=== PATIENT | female | born 1945 | race Caucasian/White ===

== ENCOUNTER 2017-08-06 10:16 | Inpatient (IN) | payer MEDICARE ==
[~2017-08-06] VITALS: Ht 154.9 cm; Wt 54.1 kg
[2017-08-06 10:56] LABS: Basophils # (auto) 0.1 uL; Basophils % (auto) 0.7 % (0.0-2.0); Eosinophils # (auto) 0.1 uL; Eosinophils % (auto) 0.9 % (0.0-7.0); Hematocrit 47.5 % (36.0-46.0); Hemoglobin 16.3 g/dL (12.2-16.2); Lymphocytes # (auto) 2.4 uL; Lymphocytes % (auto) 30.3 % (10.0-50.0); Mean Corpuscular Hemoglobin 31.4 pg (28.0-32.0); Mean Corpuscular Hgb Conc. 34.3 g/dL (32.0-36.0); Mean Corpuscular Volume 91.6 fL (80.0-100.0); Mean Platelet Volume 6.9 fL (6.9-10.8); Monocytes # (auto) 0.6 uL; Monocytes % (auto) 8.2 % (0.0-12.0); Neutrophils # (auto) 4.7 uL; Neutrophils % (auto) 59.9 % (37.0-80.0); Nucleated Red Blood Cells % 0.1 %; Platelet Count (auto) 308 10^3/uL (140-450); Red Cell Distribution Width 13.7 % (11.8-14.3); White Blood Cell 7.8 10^3/uL (4.4-10.8)
[2017-08-06 11:19] LABS: Albumin 3.6 g/dL (3.4-5.0); Alkaline Phosphatase 40 U/L (45-117); Anion Gap 8 (5-15); Aspartate Aminotransferase 14 U/L (15-37); BUN/Creatinine Ratio 16.9; Bilirubin, Total 0.6 mg/dL (0.2-1.0); Blood Urea Nitrogen 11 mg/dL (7-18); Calcium 8.6 mg/dL (8.5-10.1); Carbon Dioxide 25 mmol/L (21-32); Chloride 106 mmol/L (98-107); GFR African American 115 mL/min; GFR Non-African American 95 mL/min; Glucose 123 mg/dL (74-106); Magnesium 2.4 mg/dL (1.6-2.6); Potassium 3.9 mmol/L (3.5-5.1); Sodium 139 mmol/L (136-145); Total Protein 6.8 g/dL (6.4-8.2)
[2017-08-06 14:35] LABS: B-Type Natriuretic Peptide 45.2 pg/mL (0-100); Temperature: 21.9 C (20.0-25.0)
[2017-08-06] MEDS ORDERED: SODIUM CHLORIDE 0.9% 1,000 ML IVB ONE (15:30)
[2017-08-06 16:05] LABS: Urine Blood Negative /uL (Negative); Urine Color Brown (Yellow); Urine Glucose Normal (Normal); Urine Ketone Negative (Negative); Urine Mucus FEW (None Seen); Urine Nitrite POSITIVE (Negative); Urine RBC 1 /hpf (0 - 4); Urine Squamous Epithelial Cell FEW /hpf (<5)
[2017-08-06 16:24] LABS: Urine Bilirubin Negative (Negative)
[2017-08-06 16:52] LABS: Partial Thromboplastin Time 26.9 sec (22.64-33.71); Prothrombin Time 10.9 sec (9.37-12.3)
[2017-08-06] MEDS ORDERED: cefTRIAXone 1GM/50ML D5W 50 ML IV ONE (17:00)
[2017-08-06] MEDS ORDERED: ALBUTEROL SULF 2.5 MG/0.5ML(0.5%) NEB SOLN NEB PRN (19:30)
[2017-08-06] MEDS ORDERED: IPRATROPIUM BROM 0.5 MG/2.5ML INH SOL NEB PRN (19:30)
[2017-08-06] MEDS ORDERED: VERAPAMIL HCL 40 MG TAB PO ONE (22:00)
[2017-08-06 22:02] LABS: Cholesterol 176 mg/dL (< 200); HDL Cholesterol 65 mg/dL (40-59); LDL Cholesterol 102 mg/dL (< 100); Triglycerides 122 mg/dL (< 150)
[2017-08-06] MEDS: ENOXAPARIN SOD 40 MG/0.4 ML SYRINGE SC SCH (22:02)
[2017-08-06] MEDS: LEVOFLOXACIN 750MG 150 ML IV SCH (22:03)
[2017-08-06] MEDS: SODIUM CHLORIDE 0.9% 1,000 ML IV SCH (22:03)
[2017-08-07] VITALS (8 sets, daily range): BP systolic 113–156; BP diastolic 55–78
[2017-08-07] MEDS ORDERED: VERA1TAB9 PO (00:47)
[2017-08-07] MEDS ORDERED: CHOL20007 PO (00:47)
[2017-08-07] MEDS ORDERED: ESOM40CA39 PO (00:47)
[2017-08-07] MEDS: VERAPAMIL HCL 40 MG TAB PO SCH (05:50)
[2017-08-07 07:00] LABS: Basophils # (auto) 0 uL; Basophils % (auto) 0.8 % (0.0-2.0); Eosinophils # (auto) 0.1 uL; Hematocrit 42.1 % (36.0-46.0); Hemoglobin 14.3 g/dL (12.2-16.2); Lymphocytes % (auto) 30.2 % (10.0-50.0); Mean Corpuscular Hemoglobin 31.2 pg (28.0-32.0); Mean Corpuscular Volume 91.8 fL (80.0-100.0); Mean Platelet Volume 6.9 fL (6.9-10.8); Monocytes # (auto) 0.6 uL; Monocytes % (auto) 9.2 % (0.0-12.0); Neutrophils # (auto) 3.9 uL; Neutrophils % (auto) 58.8 % (37.0-80.0); Nucleated Red Blood Cells % 0.1 %; Platelet Count (auto) 251 10^3/uL (140-450); Red Cell Distribution Width 13.7 % (11.8-14.3); White Blood Cell 6.6 10^3/uL (4.4-10.8)
[2017-08-07 07:22] LABS: Albumin 2.9 g/dL (3.4-5.0); BUN/Creatinine Ratio 16.1; Potassium 3.8 mmol/L (3.5-5.1)
[2017-08-07 07:26] LABS: Bilirubin, Total 0.6 mg/dL (0.2-1.0); Total Protein 5.7 g/dL (6.4-8.2)
[2017-08-07] MEDS: PANTOPRAZOLE 40 MG TAB PO SCH (11:18)
[2017-08-07] MEDS: SODIUM CHLORIDE 0.9% 1,000 ML IV SCH (12:10)
[2017-08-07] MEDS ORDERED: KETOROLAC TROMETH 30 MG/ML 1ML VIAL IV PRN (14:00)
[2017-08-07] MEDS ORDERED: ONDANSETRON HCL 4 MG/2 ML VIAL IV PRN (14:00)
[2017-08-07] MEDS: LORazepam 0.5 MG TAB PO PRN ×2 (15:39→23:11)
[2017-08-07] MEDS: ENOXAPARIN SOD 40 MG/0.4 ML SYRINGE SC SCH (18:58)
[2017-08-07] MEDS: TEMAZEPAM 15 MG CAP PO PRN (21:25)
[2017-08-07] MEDS: LEVOFLOXACIN 750MG 150 ML IV SCH (21:25)
[2017-08-08 05:28] VITALS: BP 121/65
[2017-08-08 06:58] LABS: Basophils # (auto) 0 uL; Basophils % (auto) 0.6 % (0.0-2.0); Eosinophils # (auto) 0.1 uL; Eosinophils % (auto) 1.3 % (0.0-7.0); Hematocrit 41.9 % (36.0-46.0); Hemoglobin 14.1 g/dL (12.2-16.2); Lymphocytes # (auto) 2.4 uL; Lymphocytes % (auto) 37.1 % (10.0-50.0); Mean Corpuscular Hemoglobin 31.4 pg (28.0-32.0); Mean Corpuscular Hgb Conc. 33.8 g/dL (32.0-36.0); Mean Corpuscular Volume 93.1 fL (80.0-100.0); Mean Platelet Volume 7.4 fL (6.9-10.8); Monocytes # (auto) 0.6 uL; Monocytes % (auto) 9.6 % (0.0-12.0); Neutrophils # (auto) 3.3 uL; Neutrophils % (auto) 51.4 % (37.0-80.0); Nucleated Red Blood Cells % 0.1 %; Platelet Count (auto) 210 10^3/uL (140-450); Red Cell Distribution Width 13.7 % (11.8-14.3); White Blood Cell 6.4 10^3/uL (4.4-10.8)
[2017-08-08] MEDS: SODIUM CHLORIDE 0.9% 1,000 ML IV SCH (07:07)
[2017-08-08 07:09] LABS: BUN/Creatinine Ratio 19.6; Calcium 7.5 mg/dL (8.5-10.1); Potassium 3.7 mmol/L (3.5-5.1)
[2017-08-08] MEDS: VERAPAMIL HCL 40 MG TAB PO SCH (07:11)
[2017-08-08 07:30] VITALS: BP 102/56
[2017-08-08 09:00] VITALS: BP 142/69
[2017-08-08] MEDS: LORazepam 0.5 MG TAB PO PRN (11:00)
[2017-08-08] MEDS: PANTOPRAZOLE 40 MG TAB PO SCH (12:53)
[2017-08-08 13:00] VITALS: BP 102/56
[2017-08-08] MEDS ORDERED: ALPRAZolam 0.25 MG TAB PO ONE (13:00)
[2017-08-08 17:00] VITALS: BP 112/63
[2017-08-08] MEDS ORDERED: CARI250T PO (17:53)
[2017-08-08 20:00] VITALS: BP 104/55
[2017-08-08] MEDS: ALPRAZolam 0.25 MG TAB PO SCH (21:23)
[2017-08-08] MEDS: LEVOFLOXACIN 750MG 150 ML IV SCH (21:23)
[2017-08-08] MEDS: TEMAZEPAM 15 MG CAP PO PRN (22:22)
[2017-08-09 05:20] VITALS: BP 140/80
[2017-08-09] MEDS: VERAPAMIL HCL 40 MG TAB PO SCH (06:18)
[2017-08-09] MEDS ORDERED: ACETAMINOPHEN 325 MG TAB PO PRN (07:00)
[2017-08-09 07:46] VITALS: BP 143/77
[2017-08-09] MEDS: PANTOPRAZOLE 40 MG TAB PO SCH (08:51)
[2017-08-09] MEDS: ALPRAZolam 0.25 MG TAB PO SCH (08:52)
[2017-08-09] MEDS ORDERED: DOCUSATE SOD 100 MG CAP PO SCH (10:00)
[2017-08-09] MEDS ORDERED: ALPRAZolam 0.25 MG TAB PO ONE (11:15)
[2017-08-09 12:26] VITALS: BP 114/53
== END 2017-08-09 14:00 | DRG 689 ==
LOC: ER 10:16 → TELE 10:17 → TELE-EAST 20:45 → EAST 08-08 14:25
PROVIDERS: ADMIT Nurse Practitioner Acute Care; ATTEND Internal Medicine
DX: N39.0 Urinary tract infection, site not specified (principal); J18.9 Pneumonia, unspecified organism; K31.84 Gastroparesis; I10 Essential (primary) hypertension; K21.9 Gastro-esophageal reflux disease without esophagitis; M81.0 Age-related osteoporosis without current pathological fracture; E78.5 Hyperlipidemia, unspecified; F32.9 Major depressive disorder, single episode, unspecified; F41.9 Anxiety disorder, unspecified; K58.9 Irritable bowel syndrome, unspecified; J06.9 Acute upper respiratory infection, unspecified; Z82.49 Family history of ischemic heart disease and other diseases of the circulatory system
CPT/HCPCS: 36415; 71010; 80048; 80053; 80061; 81001; 83605; 83735; 83880; 84484; 85025; 85379; 85610; 85730; 87040; 87081; 87086; 87088; 87186; 87400; 92610; 93005; 94761; 96361; 96365; J0696; J1885; J1956

== ENCOUNTER 2018-11-12 08:04 | Emergency (ER) | payer MEDICARE, OTHER ==
[~2018-11-12] VITALS: Ht 154.9 cm; Wt 65.3 kg
[~2018-11-12 08:04] MED LIST: CARI250T PO; CHOL20007 PO; ESOM40CA39 PO; VERA1TAB9 PO
[2018-11-12 08:30] VITALS: BP 152/69
[2018-11-12 08:56] LABS: Basophils # (auto) 0.1 uL; Basophils % (auto) 0.8 % (0.0-2.0); Eosinophils # (auto) 0.1 uL; Eosinophils % (auto) 1.3 % (0.0-7.0); Hematocrit 46.9 % (36.0-46.0); Hemoglobin 15.7 g/dL (12.2-16.2); Lymphocytes # (auto) 1.9 uL; Lymphocytes % (auto) 28.4 % (10.0-50.0); Mean Corpuscular Hemoglobin 30.8 pg (28.0-32.0); Mean Corpuscular Hgb Conc. 33.4 g/dL (32.0-36.0); Mean Corpuscular Volume 92.2 fL (80.0-100.0); Monocytes # (auto) 0.6 uL; Monocytes % (auto) 8.5 % (0.0-12.0); Platelet Count (auto) 268 10^3/uL (140-450); Red Blood Cells 5.08 10^6/uL (4.0-5.20); Red Cell Distribution Width 13.5 % (11.8-14.3); White Blood Cell 6.6 10^3/uL (4.4-10.8)
[2018-11-12 09:02] LABS: Alanine Aminotransferase 24 U/L (13-56); Albumin 3.6 g/dL (3.4-5.0); Anion Gap 10 (5-15); Aspartate Aminotransferase 18 U/L (15-37); BUN/Creatinine Ratio 22.7; Blood Urea Nitrogen 22 mg/dL (7-18); Calcium 8.6 mg/dL (8.5-10.1); Carbon Dioxide 24 mmol/L (21-32); Chloride 107 mmol/L (98-107); GFR African American > 60 mL/min; GFR Non-African American 60 mL/min; Glucose 115 mg/dL (74-106); Potassium 3.9 mmol/L (3.5-5.1); Sodium 141 mmol/L (136-145)
[2018-11-12 09:05] LABS: Alkaline Phosphatase 65 U/L (45-117); Bilirubin, Total 0.8 mg/dL (0.2-1.0); Total Protein 6.7 g/dL (6.4-8.2)
[2018-11-12 09:23] LABS: Urine Amorphous Crystal FEW /hpf (None Seen); Urine Bacteria NONE SEEN /hpf (None Seen); Urine Blood Negative /uL (Negative); Urine Mucus FEW (None Seen); Urine Specific Gravity 1.037 (1.001-1.035); Urine WBC 3 /hpf (0 - 5)
[2018-11-12] MEDS ORDERED: FLEET ENEMA(ADULT) 135 ML PR ONE (10:30)
== END 2018-11-12 11:02 | disposition home or self-care (01) ==
LOC: ER 08:04 → EDBD 08:04 → ER 11:02
DX: K59.00 Constipation, unspecified (principal); R30.0 Dysuria; K21.9 Gastro-esophageal reflux disease without esophagitis; I10 Essential (primary) hypertension; Z88.0 Allergy status to penicillin; Z88.6 Allergy status to analgesic agent; Z79.899 Other long term (current) drug therapy
CPT/HCPCS: 36415; 51702; 80053; 81001; 85025; 93005; 94761